=== PATIENT | male | born 1985 ===

== ENCOUNTER 2017-05-30 17:51 | Emergency (ER) | payer MEDICAID ==
[2017-05-30 18:03] VITALS: TEMP 99.9
[2017-05-30] MEDS ORDERED: Sodium Chloride 0.9% 1,000 ML IV STA (18:09)
--- NOTE | 2017-05-30 18:12 | ED PDOC ---
HPI: Altered Mental Status Time Seen by Provider: 05/30/17 17:59 Chief Complaint (Nursing): Altered Mental Status Chief Complaint (Provider): head injury History/Exam Limitations: Clinical Condition Additional Complaint(s): Found in hallway of subsidized housing poorly responsive with laceration to forehead. Pt not giving any history on what led to injury. Questionable intoxication. Denies use of alcohol or drugs. Denies medications except vitamins. Clothes demonstrate urinary incontinence. Past Medical History Reviewed: Historical Data, Nursing Documentation, Vital Signs, Unable To Obtain Vital Signs: Last Vital Signs Temp 99.9 F H 05/30/17 17:54 Pulse 88 05/30/17 17:54 Resp 20 05/30/17 17:54 BP 145/88 05/30/17 17:54 Pulse Ox 98 05/30/17 17:54 - Medical History PMH: Asthma (from previous charts) - Surgical History Surgical History: No Surg Hx - Family History Family History: States: Unknown Family Hx - Social History Current smoker - smoking cessation education provided: Yes Drugs: Denies - Immunization History Hx Tetanus Toxoid Vaccination: No Hx Influenza Vaccination: No Hx Pneumococcal Vaccination: No - Home Medications Home Medications: Ambulatory Orders Medication Instructions Recorded Albuterol HFA [Ventolin HFA 90 2 puff IH [id number] #1 puff 04/21/13 mcg/actuation (8 g)] Clindamycin [Cleocin] 300 mg PO Q6 #28 cap 12/27/13 oxyCODONE/Acetaminophen [Percocet 1 tab PO QID PRN #20 tab 12/27/13 5/325 mg Tab] - Allergies Allergies/Adverse Reactions: Allergies Allergy/AdvReac Type Severity Reaction Status Date / Time No Known Allergies Allergy Verified 05/30/17 17:53 Review of Systems Review Of Systems: ROS cannot be obtained secondary to pt's inabilty to answer questions. Physical Exam - Reviewed Nursing Documentation Reviewed: Yes Vital Signs Reviewed: Yes - Physical Exam Appears: Positive for: In Acute Distress (lethargic and at time obtunded vs uncooperative) Head Exam: Positive for: NORMOCEPHALIC (diagonal 3cm laceration RIGHT forehead just above brow) Skin: Positive for: Warm, Dry Eye Exam: Positive for: EOMI (roving eye movements), PERRL, Nystagmus (rotatory) ENT: Negative for: Pharyngeal Erythema, Tonsillar Exudate Neck: Positive for: Painless ROM, Supple, Trachea Midline Cardiovascular/Chest: Positive for: Regular Rate, Rhythm, Chest Non Tender. Negative for: Murmur Respiratory: Positive for: Normal Breath Sounds. Negative for: Wheezing Gastrointestinal/Abdominal: Positive for: Soft. Negative for: Tenderness Back: Positive for: Normal Inspection. Negative for: Decreased ROM Extremity: Positive for: Normal ROM. Negative for: Deformity Lymphatic: Negative for: Adenopathy Neurologic/Psych: Positive for: Mood/Affect (flat). Negative for: Alert, Oriented, Motor/Sensory Deficits - Laboratory Results Result Diagrams: 05/30/17 18:25 05/30/17 18:55 - ECG O2 Sat by Pulse Oximetry: 98 - Progress ED Course And Treament: EXAM: CT Head Without Intravenous Contrast CLINICAL HISTORY: 31 years old, male; Injury or trauma; Fall; Initial encounter; Laceration; Consciousness not specified; Without residual foreign body; Forehead and head, generalized; Injury date: Today? ; Injury details: Drug ETOH abuser? . Falling forehead laceration; Additional info: Head injury possible intoxication TECHNIQUE: Axial computed tomography images of the head/brain without intravenous contrast. All CT scans at this facility use one or more dose reduction techniques, viz.: automated exposure control; ma/kV adjustment per patient size (including targeted exams where dose is matched to indication; i.e. head); or iterative reconstruction technique. Coronal and sagittal reformatted images were created and reviewed. COMPARISON: No relevant prior studies available. FINDINGS: Limitations: Motion artifact - mild. Brain: No definite intracranial hemorrhage. No mass. No definite edema. Ventricles: No hydrocephalus. Bones/joints: No acute fracture. Soft tissues: Soft tissue irregularity along frontal region. Sinuses: [id number] mucosal thickening of ethmoid sinuses. Mild focal mucosal thickening and/or fluid of LEFT sphenoid sinus. Scattered minimal mucosal thickening of remaining sinuses. Mastoid air cells: No mastoid effusion. Orbits: Unremarkable as visualized. IMPRESSION: 1. No definite intracranial hemorrhage. 2. Incidental/non-acute findings are described above. Thank you for allowing us to participate in the care of your patient. Dictated and Authenticated by: Jeffry Brewster MD 05/30/2017 8:12 PM Eastern Time ([place] & [place]) EXAM: CT Cervical Spine Without Intravenous Contrast CLINICAL HISTORY: 31 years old, male; Injury or trauma; Fall; Initial encounter; Laceration; Without foreign body; Injury date: Today? ; Injury details: Drug ETOH abuser? . Falling. Forehead laceration ; Additional info: Head injury intoxication TECHNIQUE: Axial computed tomography images of the cervical spine without intravenous contrast. All CT scans at this facility use one or more dose reduction techniques, viz.: automated exposure control; ma/kV adjustment per patient size (including targeted exams where dose is matched to indication; i.e. head); or iterative reconstruction technique. Coronal and sagittal reformatted images were created and reviewed. COMPARISON: No relevant prior studies available. FINDINGS: Vertebrae: No acute fracture. Straightening of cervical spine. Discs/spinal canal/neural foramina: No significant spinal canal stenosis. Soft tissues: Unremarkable. Lung apices: Unremarkable as visualized. IMPRESSION: 1. No fracture. Thank you for allowing us to participate in the care of your patient. Dictated and Authenticated by: Jeffry Brewster MD 05/30/2017 8:16 PM Eastern Time ([place] & [place]) Disposition - Disposition Forms: [employer] (Azeri)
[2017-05-30 18:42] LABS: BASO # 0.1 K/uL (0.0-0.2); BASO % 0.6 % (0.0-2.0); EOS # 0.2 K/uL (0.0-0.7); EOS % 1.4 % (0.0-4.0); HEMATOCRIT 42.7 % (35.0-51.0); LYMPH # 2.2 K/uL (1.0-4.3); LYMPH % 20.6 % (20.0-40.0); MEAN CELL VOLUME 95.5 fl (80.0-94.0); MEAN CORPUSCULAR HEMOGLOBIN 32.8 pg (27.0-31.0); MEAN CORPUSCULAR HGB CONC 34.3 g/dL (33.0-37.0); MEAN PLATELET VOLUME 7.3 fl (7.2-11.7); MONO # 0.6 K/uL (0.0-0.8); MONO % 6.1 % (0.0-10.0); NEUT # 7.6 K/uL (1.8-7.0); NEUT % 71.3 % (50.0-75.0); WHITE BLOOD COUNT 10.6 K/uL (4.8-10.8)
[2017-05-30] MEDS ORDERED: DiphenhydrAMINE 50 mg/ml Inj IVP STA (19:12)
[2017-05-30 19:22] LABS: ALKALINE PHOSPHATASE 71 U/L (38-126); ALT/SGPT 51 U/L (21-72); AST/SGOT 38 U/L (17-59); BILIRUBIN,TOTAL 0.4 mg/dl (0.2-1.3); BLOOD UREA NITROGEN 20 mg/dl (9-20); CALCIUM 9.1 mg/dL (8.4-10.2); CARBON DIOXIDE 28 mmol/L (22-30); CHLORIDE 103 mmol/L (98-107); GFR AFRICAN-AMERICAN > 60; GLUCOSE,RANDOM 136 mg/dL (75-110); POTASSIUM 3.9 MMOL/L (3.6-5.0); SODIUM 142 mmol/l (132-148); TOTAL PROTEIN 7.6 G/DL (6.3-8.2)
[2017-05-30 19:24] LABS: ALB/GLOB RATIO 1.5 (1.0-2.1)
[2017-05-30 19:32] LABS: ALCOHOL SERUM < 10 mg/dl (0-10); PHOSPHOROUS 3.4 mg/dl (2.5-4.5)
--- NOTE | 2017-05-30 20:13 | CT ---
EXAM: CT Head Without Intravenous Contrast CLINICAL HISTORY: 31 years old, male; Injury or trauma; Fall; Initial encounter; Laceration; Consciousness not specified; Without residual foreign body; Forehead and head, generalized; Injury date: Today? ; Injury details: Drug ETOH abuser? . Falling forehead laceration; Additional info: Head injury possible intoxication TECHNIQUE: Axial computed tomography images of the head/brain without intravenous contrast. All CT scans at this facility use one or more dose reduction techniques, viz.: automated exposure control; ma/kV adjustment per patient size (including targeted exams where dose is matched to indication; i.e. head); or iterative reconstruction technique. Coronal and sagittal reformatted images were created and reviewed. COMPARISON: No relevant prior studies available. FINDINGS: Limitations: Motion artifact - mild. Brain: No definite intracranial hemorrhage. No mass. No definite edema. Ventricles: No hydrocephalus. Bones/joints: No acute fracture. Soft tissues: Soft tissue irregularity along frontal region. Sinuses: [id number] mucosal thickening of ethmoid sinuses. Mild focal mucosal thickening and/or fluid of LEFT sphenoid sinus. Scattered minimal mucosal thickening of remaining sinuses. Mastoid air cells: No mastoid effusion. Orbits: Unremarkable as visualized. IMPRESSION: 1. No definite intracranial hemorrhage. 2. Incidental/non-acute findings are described above.
--- NOTE | 2017-05-30 20:16 | CT ---
EXAM: CT Cervical Spine Without Intravenous Contrast CLINICAL HISTORY: 31 years old, male; Injury or trauma; Fall; Initial encounter; Laceration; Without foreign body; Injury date: Today? ; Injury details: Drug ETOH abuser? . Falling. Forehead laceration; Additional info: Head injury intoxication TECHNIQUE: Axial computed tomography images of the cervical spine without intravenous contrast. All CT scans at this facility use one or more dose reduction techniques, viz.: automated exposure control; ma/kV adjustment per patient size (including targeted exams where dose is matched to indication; i.e. head); or iterative reconstruction technique. Coronal and sagittal reformatted images were created and reviewed. COMPARISON: No relevant prior studies available. FINDINGS: Vertebrae: No acute fracture. Straightening of cervical spine. Discs/spinal canal/neural foramina: No significant spinal canal stenosis. Soft tissues: Unremarkable. Lung apices: Unremarkable as visualized. IMPRESSION: 1. No fracture.
[2017-05-30] MEDS ORDERED: Lidocaine 2% w Epi 1:100,000 Inj IJ ONE (20:31)
[2017-05-30] MEDS ORDERED: Povidone Iodine Oint 10% Foilpak UD ONE (20:32)
--- NOTE | 2017-05-31 00:27 | ED PDOC ---
- Laboratory Results Result Diagrams: 05/30/17 18:25 05/30/17 18:55 - ECG O2 Sat by Pulse Oximetry: 99 (RA) Pulse Ox Interpretation: Normal Medical Decision Making Medical Decision Making: Time: 00:00 --Patient transferred to [place] by Dr. Kim Buck pending sobriety and reevaluation Time: 6:00 --Patient is awake, alert, and oriented x 3 with a steady gate and fluent speech. --Stable for discharge home Clinical Impression: Head injury, substance abuse, forehead laceration Scribe Attestation: Documented by Renzo Wall, acting as a scribe for Orlin Fermin MD Provider Scribe Attestation: All medical record entries made by the Scribe were at my direction and personally dictated by me. I have reviewed the chart and agree that the record accurately reflects my personal performance of the history, physical exam, medical decision making, and the department course for this patient. I have also personally directed, reviewed, and agree with the discharge instructions and disposition. Disposition Counseled Patient/Family Regarding: Studies Performed, Diagnosis - Clinical Impression Clinical Impression: Head injury, Substance abuse - POA Present On Arrival: None, Falls Or Trauma - Disposition Referrals: [facility] [Outside] Disposition: Routine/Home Disposition Time: 06:00 Condition: STABLE Additional Instructions: Suture removal in 7 days Instructions: Care For Your Stitches (ED), Head Injury (ED) Forms: [employer] (Bolivian) Print Language: BENGALI
[2017-05-31 07:07] VITALS: BP 122/74; PULSE 62; RESP 18; O2SAT 100
== END 2017-05-31 07:07 | disposition home or self-care (01) ==
LOC: H.ER 17:51
DX: S01.81XA Laceration without foreign body of other part of head, initial encounter (principal); S09.90XA Unspecified injury of head, initial encounter; W19.XXXA Unspecified fall, initial encounter; Y92.89 Other specified places as the place of occurrence of the external cause; F19.10 Other psychoactive substance abuse, uncomplicated; J45.909 Unspecified asthma, uncomplicated
CPT/HCPCS: 70450; 72125; 80053; 80320; 82550; 82948; 83605; 83735; 84100; 85025; 90471; 90715; 96361; 96372; 96374; 96375; 99284; J1200; J1630; J2060; J7040